=== PATIENT | female | born 1990 | race Caucasian/White ===

== ENCOUNTER → 2017-01-07 | Day surgery (SDC) | payer BC, OTHER ==
[2017-01-06 08:08] VITALS: BMI 40.0
[~2017-01-07] VITALS: Ht 154.9 cm; Wt 99.1 kg
[~2017-01-07] MED LIST: AMPH10TA2 PO; AMPH20TA2 PO; ATROPINE SULFATE 0.1 MG/ML 5ML SYR IV PRN; ESCI1TAB10 PO; ETONMIS PV; EpHEDrine SULFATE INJ 50 MG/ML AMP IV PRN; LIDOCAINE HCL 2% 2 ML VIAL (20MG/ML) ONE; MIDAZOLAM HCL 1 MG/ML 2ML VIAL ONE; ONDANSETRON INJ 2 MG/ML 2 ML VIAL ONE; PANT40TA PO; PROPOFOL IV EMULSION 10 MG/ML 20 ML VIAL IV ONE; SODIUM CHLORIDE 0.9% 500ML 500 ML IV ONE; VENL150C56 PO
[2017-01-07 10:45] VITALS: Ht 154.9 cm; Wt 99.1 kg
--- NOTE | 2017-01-07 11:17 | Endo History and Physical ---
History & Physical Date of Service: Jan 07, 2017. Chief Complaint: epigastric pain Referring Physician: Dr Nathan History of Present Illness 26 yo CF who presents for EGD secondary to epigastric pain. Past Surgical History Hx Cardiac Surgery: No Hx Internal Defibrillator: No Hx Pacemaker: No Hx Abdominal Surgery: Yes (LAPAROSCOPY) Hx of Implantable Prosthesis: No Hx Post-Op Nausea and Vomiting: No Hx Cancer Surgery: No Hx Thoracic Surgery: No Hx Orthopedic: No Hx Urinary Tract Surgery: No Family History None Social History Smoking Status: Former Smoker Hx Substance Use: No Hx Alcohol Use: No Allergies Coded Allergies: Morphine (Verified Allergy, Unknown, RASH, ITCHING, SWELLING, 01/07/17) Sulfa Drugs (Verified Allergy, Unknown, RASH, ITCHING, 01/07/17) Current Medications Reported Home Medications Medications Dose Route/Sig Max Daily Dose Days Date Category Protonix (Pantoprazole Sodium) 40 Mg Tab 40 Mg PO QAM 01/06/17 Reported Adderall 10MG (Amphetamine-Dextroamphetamine 10MG) 1 Tab Tab 10 Mg PO AFTERNOON 01/06/17 Reported Adderall 20MG (Amphetamine-Dextroamphetamine 20MG) 1 Tab Tab 20 Mg PO QAM 01/06/17 Reported Effexor Extended Rel (Venlafaxine Hcl) 150 Mg Cap 150 Mg PO QAM 01/06/17 Reported Nuvaring (Ethinyl Estradiol) 1 Ea Vagring 1 Ea PV MONTHLY 09/04/12 Reported Vital Signs Weight (Kilograms): 99.09 Height (Feet): 5 Height (Inches): 1 Date Time Temp Pulse Resp B/P Pulse Ox O2 Delivery O2 Flow Rate FiO2 01/07/17 10:50 36.9 79 18 104/70 99 Room Air Physical Exam General Appearance: WD/WN, no apparent distress Respiratory/Chest: Auscultation: breath sounds normal Cardiovascular: Heart Auscultation: RRR Abdomen: Bowel Sounds: normal Inspection & Palpation: soft, non-distended, no tenderness, guarding & rebound Assessment and Plan Assessment: 26 yo CF who presents for EGD secondary to epigastric pain. Plan: Proceed with EGD.
--- NOTE | 2017-01-07 11:23 | Discharge Instructions ---
Endoscopy Patient Instructions Date / Procedure(s) Performed Jan 07, 2017. EGD Allergy Information Coded Allergies: Morphine (Verified Allergy, Unknown, RASH, ITCHING, SWELLING, 01/07/17) Sulfa Drugs (Verified Allergy, Unknown, RASH, ITCHING, 01/07/17) Discharge Date / Findings Jan 07, 2017. Gastritis s/p biopsies Medication Instructions OK to resume all medications today as prescribed Reported Home Medications Medications Dose Route/Sig Max Daily Dose Days Date Category Protonix (Pantoprazole Sodium) 40 Mg Tab 40 Mg PO QAM 01/06/17 Reported Adderall 10MG (Amphetamine-Dextroamphetamine 10MG) 1 Tab Tab 10 Mg PO AFTERNOON 01/06/17 Reported Adderall 20MG (Amphetamine-Dextroamphetamine 20MG) 1 Tab Tab 20 Mg PO QAM 01/06/17 Reported Effexor Extended Rel (Venlafaxine Hcl) 150 Mg Cap 150 Mg PO QAM 01/06/17 Reported Nuvaring (Ethinyl Estradiol) 1 Ea Vagring 1 Ea PV MONTHLY 09/04/12 Reported Provider Instructions Activity Restrictions - No exercising or heavy lifting for 24 hours. - Do not drink alcohol the day of the procedure. - Do not drive a car or operate machinery until the day after the procedure. - Do not make any important decisions or sign important papers in 24 hours after the procedure. Following Day: - Return to full activity which may include returning to work/school. Diet Start your diet with liquids and light foods (jello, soup, juice, toast). Then eat your usual diet if not nauseated. Treatment For Common After Affects For mild abdominal pain, bloating, or excessive gas: - Rest - Eat lightly - Lie on right side Follow-Up Information Follow-up with Dr Nathan as scheduled Anesthesia Information What You Should Know You have had a procedure that required some medicine to reduce anxiety and discomfort. This treatment is called moderate sedation. After receiving the treatment, you may be sleepy, but you will be able to breathe on your own. The effects of the treatment may last for several hours. Follow these instructions along with Activity/Diet recommendations noted above: * Do NOT do anything where dizziness or clumsiness would be dangerous. * Rest quietly at home today, then you can be up and about tomorrow. * Have a responsible person stay with you the rest of today. * You may have had an I.V. today. If so, you may take the dressing off later today. Recommendations Call your doctor if: * Trouble breathing * Continuous vomiting for more than 24 hours * Temperature above 101 degrees * Severe abdominal pain or bloating * Pain not relieved by pain medicine ordered * There is increased drainage or redness from any incision * A large amount of rectal bleeding greater than 2-3 tablespoons. (If you had a polyp/s removed or have hemorrhoids, a small amount of blood - from the rectum is to be expected.) * You have any unanswered questions or concerns. IN THE EVENT OF A SERIOUS EMERGENCY, GO TO THE NEAREST EMERGENCY ROOM Your discharge instructions were prepared by provider Ernie Cleaning. Patient Instructions Signature Page hCey Wagner Patient (or Guardian) Signature/Date: I have read and understand the instructions given to me by my caregivers. Caregiver/RN/Doctor Signature/Date: The above-named patient and/or guardian has received patient instructions on this date. + Original Patient Signature Page (only) stays with chart. Please make copy for patient.
--- NOTE | 2017-01-07 11:25 | GI REPORT ---
Procedure Date: 01/07/2017 11:00 AM Procedure: Upper GI endoscopy Indications: Epigastric abdominal pain Medicines: Monitored Anesthesia Care Complications: No immediate complications. Estimated Blood Loss: Estimated blood loss: none. Procedure: Pre-Anesthesia Assessment: - Prior to the procedure, a History and Physical was performed, and patient medications and allergies were reviewed. The patient's tolerance of previous anesthesia was also reviewed. The risks and benefits of the procedure and the sedation options and risks were discussed with the patient. All questions were answered, and informed consent was obtained. Prior Anticoagulants: The patient has taken no previous anticoagulant or antiplatelet agents. ASA Grade Assessment: II - A patient with mild systemic disease. After reviewing the risks and benefits, the patient was deemed in satisfactory condition to undergo the procedure. After obtaining informed consent, the endoscope was passed under direct vision. Throughout the procedure, the patient's blood pressure, pulse, and oxygen saturations were monitored continuously. The scope was introduced through the mouth, and advanced to the second part of duodenum. The upper GI endoscopy was accomplished without difficulty. The patient tolerated the procedure well. Findings: The esophagus was normal. Localized mild inflammation characterized by erythema was found in the gastric antrum. Biopsies were taken with a cold forceps for histology. The examined duodenum was normal. Impression: - Normal esophagus. - Gastritis. Biopsied. - Normal examined duodenum. Recommendation: - Resume previous diet. - Continue present medications. - Await pathology results. - Return to primary care physician as previously scheduled. Ernie Cleaning DO 01/07/2017 11:24:47 AM This report has been signed electronically. Note Initiated On: 01/07/2017 11:00 AM I attest to the content of the Intraoperative Record and orders documented therein, exceptions below
--- NOTE | 2017-01-07 11:39 | Anesthesiology Progress Note ---
Anesthesia Post Op Note Date & Time Jan 07, 2017 at 11:38 Vital Signs Pain Intensity: 5 Vital Signs Past 12 Hours Date Time Temp Pulse Resp B/P Pulse Ox O2 Delivery O2 Flow Rate FiO2 01/07/17 11:26 72 16 105/76 100 Room Air 01/07/17 10:50 36.9 79 18 104/70 99 Room Air Notes Mental Status: alert / awake / arousable, participated in evaluation Pt Amnestic to Procedure: Yes Nausea / Vomiting: adequately controlled Pain: adequately controlled Airway Patency, RR, SpO2: stable & adequate BP & HR: stable & adequate Hydration State: stable & adequate Anesthetic Complications: no major complications apparent
[2017-01-07 11:53] VITALS: BP 100/72; PULSE 82; O2SAT 100
== END | disposition home or self-care (01) ==
LOC: C.GI 10:32
PROVIDERS: ATTEND Internal Medicine
DX: K29.70 Gastritis, unspecified, without bleeding (principal); Z79.899 Other long term (current) drug therapy

== ENCOUNTER → 2017-03-09 | Outpatient (CLI) | payer OTHER ==
[~2017-03-09] MED LIST changes: -ATROPINE SULFATE 0.1 MG/ML 5ML SYR IV PRN; -EpHEDrine SULFATE INJ 50 MG/ML AMP IV PRN; -LIDOCAINE HCL 2% 2 ML VIAL (20MG/ML) ONE; -MIDAZOLAM HCL 1 MG/ML 2ML VIAL ONE; -ONDANSETRON INJ 2 MG/ML 2 ML VIAL ONE; -PROPOFOL IV EMULSION 10 MG/ML 20 ML VIAL IV ONE; -SODIUM CHLORIDE 0.9% 500ML 500 ML IV ONE
[2017-03-09 13:30] LABS: BASO % 0.5 %; BASO ABS # 0.04 K/uL (0-0.2); COMPLETE YES; EOS % 1.6 %; IG% 0.2 %; LYMPH % 20.4 %; LYMPH ABS # 1.76 K/uL (1.2-3.4); MEAN CELL VOLUME 89.6 fL (80-100); MEAN CORPUSCULAR HEMOGLOBIN 29.6 pg (25-34); MEAN CORPUSCULAR HGB CONC 33.1 g/dl (32-36); MEAN PLATELET VOLUME 10.7 fL (7.4-10.4); MONO % 3.7 %; NEUT % 73.6 %; PLATELET COUNT 268 K/uL (130-400); RED BLOOD COUNT 4.69 M/uL (4.2-5.4); WHITE BLOOD COUNT 8.62 K/uL (4.8-10.8)
[2017-03-09 13:53] LABS: ALT/SGPT 19 U/L (12-78); AMYLASE 77 U/L (25-115); BLOOD UREA NITROGEN 8 mg/dl (7-18); BUN/CREATININE RATIO 10.9 (10-20); C-REACTIVE PROTEIN 2.27 mg/dl (0-0.29); CARBON DIOXIDE 25 mmol/L (21-32); CHLORIDE 106 mmol/L (98-107); CREATININE 0.76 mg/dl (0.60-1.20); GLUCOSE 113 mg/dl (70-99); POTASSIUM 3.6 mmol/L (3.5-5.1); SODIUM 139 mmol/L (136-145)
[2017-03-09 13:55] LABS: ALB/GLOB RATIO 0.7 (0.9-2); ALKALINE PHOSPHATASE 94 U/L (45-117); AST/SGOT 10 U/L (15-37); CALCIUM 8.5 mg/dl (8.5-10.1)
[2017-03-12 04:36] LABS: IGA SERUM 304 mg/dL (81-463); TIS TRANS IGA 1 U/mL (<4)
== END | disposition home or self-care (01) ==
LOC: C.LAB1850 11:55
PROVIDERS: ATTEND Registered Nurse
DX: R14.0 Abdominal distension (gaseous) (principal)

== ENCOUNTER → 2017-03-11 | Outpatient (CLI) | payer OTHER ==
--- NOTE | 2017-03-11 12:11 | DIAGNOSTIC IMAGING REPORT ---
BILIARY ULTRASOUND CLINICAL HISTORY: R10.13 Abdominal pain, [id number] COMPARISON STUDY: CT scan dated 09/04/2012 FINDINGS: The pancreas appears normal as visualized. The liver appears sonographically normal. The gallbladder appears sonographically normal. There is no right-sided hydronephrosis. There is no ductal dilatation. The common bile duct measures 3 mm. IMPRESSION: Normal study Electronically signed by: Jewel Campbell M.D. 03/11/2017 12:09 PM Dictated Date/Time: 03/11/2017 12:09 PM
== END | disposition home or self-care (01) ==
LOC: C.ULTR 10:48
PROVIDERS: ATTEND Registered Nurse
DX: R10.13 Epigastric pain (principal); R19.7 Diarrhea, unspecified; R14.0 Abdominal distension (gaseous)

== ENCOUNTER → 2017-03-22 | Day surgery (SDC) | payer OTHER ==
[2017-03-15 07:37] VITALS: Ht 156.2 cm; Wt 100.0 kg
[~2017-03-22] VITALS: Ht 156.2 cm; Wt 100.0 kg
[~2017-03-22] MED LIST changes: +ATROPINE SULFATE 0.1 MG/ML 5ML SYR IV PRN; +EpHEDrine SULFATE INJ 50 MG/ML AMP IV PRN; +LIDOCAINE HCL 2% 2 ML VIAL (20MG/ML) ONE; +PROPOFOL IV EMULSION 10 MG/ML 20 ML VIAL IV ONE; +SODIUM CHLORIDE 0.9% 500ML 500 ML IV ONE; -VENL150C56 PO
--- NOTE | 2017-03-22 13:38 | Endo History and Physical ---
History & Physical Date of Service: Mar 22, 2017. Chief Complaint: Abdominal pain and elevated CRP Referring Physician: Dr. Nathan History of Present Illness 26 yo CF who presents for colonoscopy secondary to abdominal pain and elevated CRP Past Surgical History Hx Cardiac Surgery: No Hx Internal Defibrillator: No Hx Pacemaker: No Hx Abdominal Surgery: Yes (LAPAROSCOPY) Hx of Implantable Prosthesis: No Hx Post-Op Nausea and Vomiting: No Hx Cancer Surgery: No Hx Thoracic Surgery: No Hx Orthopedic: No Hx Urinary Tract Surgery: No Family History None Social History Smoking Status: Former Smoker Hx Substance Use: No Hx Alcohol Use: No Allergies Coded Allergies: Morphine (Verified Allergy, Unknown, RASH, ITCHING, SWELLING, 01/07/17) Sulfa Drugs (Verified Allergy, Unknown, RASH, ITCHING, 01/07/17) Current Medications Reported Home Medications Medications Dose Route/Sig Max Daily Dose Days Date Category Lexapro (Escitalopram Oxalate) 20 Mg Tab 2 Tab PO QAM 03/15/17 Reported Protonix (Pantoprazole Sodium) 40 Mg Tab 40 Mg PO QAM 01/06/17 Reported Adderall 10MG (Amphetamine-Dextroamphetamine 10MG) 1 Tab Tab 10 Mg PO AFTERNOON 01/06/17 Reported Adderall 20MG (Amphetamine-Dextroamphetamine 20MG) 1 Tab Tab 20 Mg PO QAM 01/06/17 Reported Nuvaring (Ethinyl Estradiol) 1 Ea Vagring 1 Ea PV MONTHLY 09/04/12 Reported Vital Signs Weight (Kilograms): 100 Height (Feet): 5 Height (Inches): 1.5 Date Time Temp Pulse Resp B/P (MAP) Pulse Ox O2 Delivery O2 Flow Rate FiO2 03/22/17 13:15 36.8 78 20 111/59 (76) 95 Room Air Physical Exam General Appearance: WD/WN, no apparent distress Respiratory/Chest: Auscultation: breath sounds normal Cardiovascular: Heart Auscultation: RRR Abdomen: Bowel Sounds: normal Inspection & Palpation: soft, non-distended, no tenderness, guarding & rebound Assessment and Plan Assessment: 26 yo CF who presents for colonoscopy secondary to abdominal pain and elevated CRP Plan: Proceed with colonoscopy.
--- NOTE | 2017-03-22 14:11 | Discharge Instructions ---
Endoscopy Patient Instructions Date / Procedure(s) Performed Mar 22, 2017. Colonoscopy Allergy Information Coded Allergies: Morphine (Verified Allergy, Unknown, RASH, ITCHING, SWELLING, 01/07/17) Sulfa Drugs (Verified Allergy, Unknown, RASH, ITCHING, 01/07/17) Discharge Date / Findings Mar 22, 2017. Internal hemorrhoids Random colon biopsies Medication Instructions Restart Stopped Medication(s): OK to resume all medications today as prescribed Reported Home Medications Medications Dose Route/Sig Max Daily Dose Days Date Category Lexapro (Escitalopram Oxalate) 20 Mg Tab 2 Tab PO QAM 03/15/17 Reported Protonix (Pantoprazole Sodium) 40 Mg Tab 40 Mg PO QAM 01/06/17 Reported Adderall 10MG (Amphetamine-Dextroamphetamine 10MG) 1 Tab Tab 10 Mg PO AFTERNOON 01/06/17 Reported Adderall 20MG (Amphetamine-Dextroamphetamine 20MG) 1 Tab Tab 20 Mg PO QAM 01/06/17 Reported Nuvaring (Ethinyl Estradiol) 1 Ea Vagring 1 Ea PV MONTHLY 09/04/12 Reported Provider Instructions Activity Restrictions - No exercising or heavy lifting for 24 hours. - Do not drink alcohol the day of the procedure. - Do not drive a car or operate machinery until the day after the procedure. - Do not make any important decisions or sign important papers in 24 hours after the procedure. Following Day: - Return to full activity which may include returning to work/school. Diet Start your diet with liquids and light foods (jello, soup, juice, toast). Then eat your usual diet if not nauseated. Treatment For Common After Affects For mild abdominal pain, bloating, or excessive gas: - Rest - Eat lightly - Lie on right side Follow-Up Information Follow-up with Dr. Nathan as scheduled Anesthesia Information What You Should Know You have had a procedure that required some medicine to reduce anxiety and discomfort. This treatment is called moderate sedation. After receiving the treatment, you may be sleepy, but you will be able to breathe on your own. The effects of the treatment may last for several hours. Follow these instructions along with Activity/Diet recommendations noted above: * Do NOT do anything where dizziness or clumsiness would be dangerous. * Rest quietly at home today, then you can be up and about tomorrow. * Have a responsible person stay with you the rest of today. * You may have had an I.V. today. If so, you may take the dressing off later today. Recommendations Call your doctor if: * Trouble breathing * Continuous vomiting for more than 24 hours * Temperature above 101 degrees * Severe abdominal pain or bloating * Pain not relieved by pain medicine ordered * There is increased drainage or redness from any incision * A large amount of rectal bleeding greater than 2-3 tablespoons. (If you had a polyp/s removed or have hemorrhoids, a small amount of blood - from the rectum is to be expected.) * You have any unanswered questions or concerns. IN THE EVENT OF A SERIOUS EMERGENCY, GO TO THE NEAREST EMERGENCY ROOM Your discharge instructions were prepared by provider Ernie Cleaning. Patient Instructions Signature Page Chey Wagner Patient (or Guardian) Signature/Date: I have read and understand the instructions given to me by my caregivers. Caregiver/RN/Doctor Signature/Date: The above-named patient and/or guardian has received patient instructions on this date. + Original Patient Signature Page (only) stays with chart. Please make copy for patient.
--- NOTE | 2017-03-22 14:16 | GI REPORT ---
Procedure Date: 03/22/2017 1:26 PM Procedure: Colonoscopy Indications: Generalized abdominal pain, Elevated CRP Medicines: Monitored Anesthesia Care Complications: No immediate complications. Estimated Blood Loss: Estimated blood loss: none. Procedure: Pre-Anesthesia Assessment: - Prior to the procedure, a History and Physical was performed, and patient medications and allergies were reviewed. The patient's tolerance of previous anesthesia was also reviewed. The risks and benefits of the procedure and the sedation options and risks were discussed with the patient. All questions were answered, and informed consent was obtained. Prior Anticoagulants: The patient has taken no previous anticoagulant or antiplatelet agents. ASA Grade Assessment: III - A patient with severe systemic disease. After reviewing the risks and benefits, the patient was deemed in satisfactory condition to undergo the procedure. After I obtained informed consent, the scope was passed under direct vision. Throughout the procedure, the patient's blood pressure, pulse, and oxygen saturations were monitored continuously. The scope was introduced through the anus and advanced to the terminal ileum. The colonoscopy was performed without difficulty. The patient tolerated the procedure well. The quality of the bowel preparation was good. The terminal ileum, ileocecal valve, appendiceal orifice, and rectum were photographed. Findings: Non-bleeding internal hemorrhoids were found during retroflexion. The hemorrhoids were small. Several random biopsies were obtained with cold forceps for histology in the entire colon. Impression: - Non-bleeding internal hemorrhoids. - Several random biopsies were obtained in the entire colon. Recommendation: - Resume previous diet. - Continue present medications. - Await pathology results. - Repeat colonoscopy for surveillance based on pathology results. - Return to primary care physician as previously scheduled. Ernie Cleaning DO 03/22/2017 2:15:12 PM This report has been signed electronically. Note Initiated On: 03/22/2017 1:26 PM I attest to the content of the Intraoperative Record and orders documented therein, exceptions below
--- NOTE | 2017-03-22 14:26 | Anesthesiology Progress Note ---
Anesthesia Post Op Note Date & Time Mar 22, 2017 at 14:25 Vital Signs Pain Intensity: 0 Vital Signs Past 12 Hours Date Time Temp Pulse Resp B/P (MAP) Pulse Ox O2 Delivery O2 Flow Rate FiO2 03/22/17 14:15 77 20 118/79 (92) 98 Room Air 03/22/17 14:02 74 20 112/76 (88) 100 Room Air 03/22/17 13:15 36.8 78 20 111/59 (76) 95 Room Air Notes Mental Status: alert / awake / arousable, participated in evaluation Pt Amnestic to Procedure: Yes Nausea / Vomiting: adequately controlled Pain: adequately controlled Airway Patency, RR, SpO2: stable & adequate BP & HR: stable & adequate Hydration State: stable & adequate Anesthetic Complications: no major complications apparent
[2017-03-22 14:29] VITALS: BP 119/78; PULSE 76; O2SAT 97
== END | disposition home or self-care (01) ==
LOC: C.GI 12:27
PROVIDERS: ATTEND Internal Medicine
DX: R10.9 Unspecified abdominal pain (principal); Z87.891 Personal history of nicotine dependence; Z79.899 Other long term (current) drug therapy; K64.8 Other hemorrhoids

== ENCOUNTER → 2017-06-15 | Outpatient (CLI) | payer OTHER ==
[~2017-06-15] MED LIST changes: -ATROPINE SULFATE 0.1 MG/ML 5ML SYR IV PRN; -EpHEDrine SULFATE INJ 50 MG/ML AMP IV PRN; -LIDOCAINE HCL 2% 2 ML VIAL (20MG/ML) ONE; -PROPOFOL IV EMULSION 10 MG/ML 20 ML VIAL IV ONE; -SODIUM CHLORIDE 0.9% 500ML 500 ML IV ONE
[2017-06-15 12:07] LABS: BASO % 0.6 %; BASO ABS # 0.05 K/uL (0-0.2); COMPLETE YES; EOS % 2.8 %; HEMATOCRIT 41.5 % (37-47); IG% 0.1 %; LYMPH ABS # 1.92 K/uL (1.2-3.4); MEAN CELL VOLUME 89.2 fL (80-100); MEAN CORPUSCULAR HGB CONC 32.5 g/dl (32-36); MEAN PLATELET VOLUME 10.8 fL (7.4-10.4); MONO % 5.6 %; NEUT % 66.9 %; PLATELET COUNT 250 K/uL (130-400); RED BLOOD COUNT 4.65 M/uL (4.2-5.4); WHITE BLOOD COUNT 7.99 K/uL (4.8-10.8)
[2017-06-15 12:23] LABS: ALT/SGPT 15 U/L (12-78); BLOOD UREA NITROGEN 8 mg/dl (7-18); BUN/CREATININE RATIO 12.2 (10-20); CALCIUM 8.6 mg/dl (8.5-10.1); CARBON DIOXIDE 22 mmol/L (21-32); CHLORIDE 108 mmol/L (98-107); CHOLESTEROL 133 mg/dl (0-200); CREATININE 0.63 mg/dl (0.60-1.20); GLUCOSE 85 mg/dl (70-99); POTASSIUM 3.9 mmol/L (3.5-5.1); SODIUM 137 mmol/L (136-145)
[2017-06-15 12:31] LABS: ALB/GLOB RATIO 0.8 (0.9-2); ALKALINE PHOSPHATASE 85 U/L (45-117); AST/SGOT 12 U/L (15-37); HDL CHOLESTEROL 66 mg/dl; LDL CHOLESTEROL CALCULATED 50 mg/dl; TRIGLYCERIDES 83 mg/dl (0-150); VERY LOW DENSITY LIPOPROT CALC 17 mg/dl
[2017-06-15 12:53] LABS: INSULIN FASTING 13.7 mU/L (3-25)
== END | disposition home or self-care (01) ==
LOC: C.LABBFT 10:03
PROVIDERS: ATTEND Physician Assistant Medical
DX: R53.83 Other fatigue (principal)

== ENCOUNTER → 2017-09-24 | Outpatient (CLI) | payer OTHER ==
[~2017-09-24] VITALS: Ht 152.4 cm; Wt 95.8 kg
[2017-09-24 15:20] VITALS: BP 125/83; PULSE 105; Ht 152.4 cm; Wt 95.8 kg
== END | disposition home or self-care (01) ==
LOC: C.NEUR 15:07
PROVIDERS: ATTEND Internal Medicine Pulmonary Disease
DX: G47.19 Other hypersomnia (principal); E66.09 Other obesity due to excess calories; R53.83 Other fatigue; F98.8 Other specified behavioral and emotional disorders with onset usually occurring in childhood and adolescence

== ENCOUNTER → 2017-10-04 | Outpatient (CLI) | payer OTHER ==
--- NOTE | 2017-10-05 06:25 | PAP/PSG TECHNICIAN REPORT ---
[facility] Core Analysis Operator Polysomnogram Report Study name: None Report date: 10/05/2017 Study date: 10/04/2017 Referring Physician: DR. DIAZ Name: SHAYLA BRITTON Interpreting Physician: Bernard Diaz M.D. Date of : 1990 Core Analysis Operator: Radha Gaines [facility]. Sex: Female Age: 27 Study Type: PSG Weight: 211 lbs 13 in Height: 27 years, Height 5' 0" Neck Circum: BMI: 41.2 Medications: ADDERALL 30 MG, LORAZEPAM 0.5 MG, NUVA RING, PANTOPRAZOLE 40 MG, WELLBUTRIN 100 MG Patient History 27 yr-old female here for a baseline study. She has a history of severe fatigue, hypersomnia, and ADD. Her Mcintosh scale is 21. The test was started on room air. ETCO2 testing was not utilized during this study. Room 1 Parameters Monitored NPSG: E1-M2, E2-M1, Fp1-M2, Fp2-M1, F3-M2, F4-M2, F4-M1, C3-M2, C4-M2, C4-M1, O1-M2, O2-M2, O2-M1, T3-M2, T4-M1, P3-M2, P4-M1, CHIN1, CHIN2, HR, EKG, Legs, PFLOW, SNOR, FLOW, CFLOW, Tidal Volume, THOR, ABDO, SpO2, PLTH, CPRESS, ETCO2 Wave, ETCO2, pH Sleep Architecture Sleep Stages Time at Lights Off 9:56:58 PM STAGES Time (min.) TST (%) Time at Lights On 5:34:28 AM Wake 91.5 -- Total Recording Time (TRT) 457.50 min. N1 34.5 9 Total Sleep Period (TSP) 406.0 min. N2 218.0 60 Total Sleep Time (TST) 366.0min. N3 41.0 11 Awake Time 91.5 min. REM 72.5 20 Wake after Sleep Onset 40.0 min. Sleep Efficiency (SE) 80 % Sleep Onset Latency (SANTOS) 51.5 min. Number of Stage 1 Shifts None Awakenings 32 Stage Changes 129 Number of REM periods 3 REM 72.5 20 REM Latency 176.5 min. NREM 293.5 80 Body Position Analysis Supine Right Left Side Prone Vertical Total Sleep Time (min.) 181.7 69.2 0.0 69.16 190.4 0.0 Total Sleep Time (%) 40% 19% 0% 19 41% N/A% Total Sleep Time REM (min.) 22.0 0.0 0.0 None 50.5 0.0 Total Sleep Time NREM (min.) 124.4 69.2 0.0 None 99.9 0.0 Intermittent Wake (min.) 35.3 16.2 0.0 None 40.1 0.0 Total Sleep Period (%) 40% None None None None None Arousals Myoclonus (PLM) * Events Count Index Events Count Index Spontaneous 61 10 Events Awake (PLMW) 126 82.6 Respiratory 0 0.0 Events Asleep w/ Arousal (PLMA) 12 2.0 PLM 12 2 Events Asleep w/o Arousal (PLMS) 82 13.4 Snoring 5 1 Total Asleep 94 15.4 Total 78 13 Total 220 29 Respiratory Analysis * CA OA MA CH H RERA Total Count 0 0 0 0 14 0 14 Index 0.0 0.0 0.0 0 2.3 0 2.3 Mean Duration 0.0 0.0 0.0 0.00 15.7 0.0 15.7 Longest Duration 0.0 0.0 0.0 0.00 0.0 0.0 25.7 Respiratory Event Summary Total Supine ~Supine Right Left Prone REM NREM Apneas Count 0 0 0 0 N/A 0 0 0 Index 0.0 0 0 0.0 N/A 0 0 0 Hypopneas (4% Desat) Count 14 13 1 0 N/A 1 2 12 Index 2.3 5.3 0 0.0 N/A 0.4 1.7 2.5 Apneas & All Hypopneas Count 14 13 1 0 N/A 1 2 12 Index 2.3 5 0 0 N/A 0 1.7 2.5 Respiratory Events (Coat Room Attendant+All Hyp+RERA) Count 14 13 1 0 N/A 1 2 12 Index 2.3 5 0 0.0 N/A 0.4 1.7 2.5 Respiratory Related Arousal Count 0 13 0 0 N/A 0 0 0 Index 0.0 0 0 0 N/A 0 0 0 Snoring Analysis Supine Right Left Prone REM NREM Total Snore duration 1.8 min Snores count 18 6 N/A 11 8 27 35 Snore mean duration 3.1 Sec Snores index 7 5 N/A 4 6.6 5.5 5.7 TST with snoring (%) 0.5% Desaturation Event Summary: Minimum %SpO2 Event Count Mean/Min/Max Duration(sec.) Desaturation Index % Time In Bed > 90 55 19.1 / 4.8 / 58.0 7.6 98.6 86 - 90 2 32.0 / 18.0 / 46.0 23.1 1.2 81 - 85 0 N/A 0.0 0.2 76 - 80 0 N/A 0.0 0.0 71 - 75 0 N/A 0.0 0.0 66 - 70 0 N/A 0.0 0.0 61 - 65 0 N/A 0.0 0.0 56 - 60 0 N/A 0.0 0.0 51 - 55 0 N/A 0.0 0.0 < 50 0 N/A 0.0 0.0 Total REM NREM Awake <50% 0.0 min. 0.0 min. 0.0 min. 0.0 min. 51 - 60% 0.0 min. 0.0 min. 0.0 min. 0.0 min. 61 - 70% 0.0 min. 0.0 min. 0.0 min. 0.0 min. 71 - 80% 0.1 min. 0.0 min. 0.0 min. 0.1 min. 81 - 90% 6.2 min. 0.0 min. 1.0 min. 5.2 min. 91 - 100% 431.5 min. 72.3 min. 291.3 min. 67.9 min. Average 95 96 95 96 Minimum SpO2 51 92 89 51 Desaturation Event Index 7.3 1.7 6.5 14.4 # Desat. Events below 89% 7 N/A N/A 7 Time(%) with Saturation below 89% 0.9 0.0 0.0 0.9 Time(min.) with Saturation below 89% 3.8 0.0 0.0 3.8 Time (mins) REM (mins) NREM (mins) % of TST SpO2 Below 90% 8 N/A N8 0.0 SpO2 Below 88% 0 0 0 0 Heart Rate Analysis Min (bpm) Max (bpm) Average (bpm) Awake 70 136 95 NREM 70 125 94 REM 66 127 92 Overall 66 127 93 Supplemental O2 Values Minimum O2 level: None Value Start Time End Time Core Analysis Operator Comments Ms. Britton slept in the right, supine, and prone positions. Her heartrate was above 90 for much of the study. PLMs were noted. Episodes of bruxism were noted. Little snoring was noted and scored as a 1 on a scale of 1 through 5. (0=no snoring, 5=snoring loud enough to be heard through a closed door or down the [address] way) She did not wake up to use the restroom during the night. Ms. Britton stated that she slept about the same as usual but woke up a lot. The final report will be interpreted and signed by a sleep physician. The completed physician report will then be placed in the patient medical record. Therapy (cm H2O) 0 TIB (min.) 457.5 TST (min.) 366.0 Sleep Onset (min.) 51.5 REM Onset From Sleep (min.) 176.5 Sleep Efficiency % 80 Wakefulness (%) 20 Wakefulness (min.) 91.5 NREM 1 (%) 9 NREM 1 (min.) 34.5 NREM 2 (%) 60 NREM 2 (min.) 218.0 NREM 3 (%) 11 NREM 3 (min.) 41.0 REM (%) 20 REM (min.) 72.5 # Arousals 78 Arousal Index 13 # Snore 35 Snore Index 5.7 AHI 2.3 AHI Supine 5 AHI Non-Supine 0 NREM AHI 2.5 REM AHI 1.7 RDI 2.3 # Obstructive Apnea 0 # Central Apnea 0 # Mixed Apnea 0 # Hypopneas 14 RERAs 0 Total Respiratory Events 14 Time Below SpO2 89% (min.) 0.0 Mean NREM SpO2 (%) 95 Mean REM SpO2 (%) 96 Mean Sleep SpO2 (%) 95 Min NREM SpO2 (%) 89 Min REM SpO2 (%) 92 Position Supine (min.) 181.7 Position Non-supine (min.) 219.6 LM Index Sleep 15.4 LM Index NREM 17.8 LM Index REM 5.8 Mean Heart Rate (bpm) 93 Min Heart Rate (bpm) 66
--- NOTE | 2017-10-06 13:28 | POLYSOMNOGRAPH REPORT ---
CLINICAL DATA: A 27-year-old female with BMI of [address] Nathan and myself with severe fatigue, hypersomnia, and ADD. Her [place] sleepiness score is 21/24, which is markedly elevated. She is on Adderall and Wellbutrin. We did discuss the possibility of a combined PSG and MSLT but she did not feel that she could go off either Adderall or Wellbutrin to complete those tests. SLEEP ARCHITECTURE: Total sleep period was 406 minutes. Total sleep time was 366 minutes divided between 292.5 minutes of non-REM sleep and 72.5 minutes of REM sleep. Sleep onset latency was delayed at 51.5 minutes. REM latency was delayed at 176.5 minutes. Sleep efficiency was 80%. Wake after sleep onset was 40 minutes. Sleep consisted of stage N1 9%, stage N2 60%, stage N3 11% and REM 20%. AROUSAL DATA: Seventy-eight arousals were recorded for an index of 13 per hour. Sixty-one were spontaneous arousals. PLM DATA: Ninety-four limb movements during sleep were noted for an index of 15 per hour with arousal index of 2 per hour. RESPIRATORY DATA: There was no evidence of clinically significant sleep apnea. The AHI was 2.3. There were 14 hypopneic episodes with a mean duration of 15.7 seconds. OXIMETRY DATA: No hypoxemia was seen. Oxygen reji was 89%. Mean saturation was 95%. EKG: Heart rates ranged from 70-127 beats per minute. No arrhythmias were noted. BANK REPRESENTATIVE'S COMMENTS: The patient slept in the right, supine, and prone positions. Heart rate was above 90 for much of the study. She did have bruxism noted. Snoring was very mild, rated 1 on a scale of 1-5. IMPRESSION: 1. No evidence of clinically significant sleep apnea/hypopnea, nocturnal hypoxemia or abnormal limb movements during sleep to explain this patient's symptoms. 2. Bruxism was noted. RECOMMENDATIONS: The patient should continue to practice good sleep hygiene. Eventually, if she continues to have symptoms, combined PSG/MSLT may be needed. Clinical correlation is needed. SALEEM
== END | disposition home or self-care (01) ==
LOC: C.NEUR 21:00
PROVIDERS: ATTEND Internal Medicine Pulmonary Disease
DX: G47.19 Other hypersomnia (principal); F98.8 Other specified behavioral and emotional disorders with onset usually occurring in childhood and adolescence; E66.09 Other obesity due to excess calories; R53.83 Other fatigue

== ENCOUNTER → 2018-05-18 | Outpatient (CLI) | payer OTHER | END | disposition home or self-care (01) | LOC: C.LABBFT 11:50 | PROVIDERS: ATTEND Nurse Practitioner | DX: R39.9 Unspecified symptoms and signs involving the genitourinary system (principal) ==